=== PATIENT | male | born 1985 | race Caucasian/White ===

== ENCOUNTER 2016-07-31 21:33 | Emergency (ER) | payer OTHER ==
[~2016-07-31] VITALS: Ht 172.7 cm; Wt 73.5 kg
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
[2016-07-31] MEDS ORDERED: ONDANSETRON 2 MG/ML (Z0FRAN) 2 ML VIAL IV ONE (22:05)
[2016-07-31] MEDS ORDERED: MAGNESIUM SULFATE 1GM VIAL 2 GM, THIAMINE INJ 100 MG, MULTIVITAMIN INJ 10 ML in D5LR 1,... IV SCH (22:05)
[2016-07-31] MEDS ORDERED: LORazepam 2 MG/ML (ATIVAN) 1 ML VIAL IV ONE (22:05)
[2016-07-31] MEDS ORDERED: FAMOTIDINE IV 20 MG in SODIUM CHLORIDE VIAL (PF) 10 ML IV ONE (22:05)
[2016-07-31] MEDS ORDERED: PANTOPRAZOLE IV 40 MG in SODIUM CHLORIDE FLUSH 10 ML IV ONE (22:05)
[2016-07-31] MEDS ORDERED: MAGNESIUM SULFATE 1 GM/2 ML VIAL ONE (22:11)
[2016-07-31] MEDS ORDERED: MULTIVITAMINS (MVI) 2 5 ML VIALS IV ONE (22:11)
[2016-07-31] MEDS ORDERED: THIAMINE 100 MG/ML (VITAMIN B1) 2 ML VIAL ONE (22:11)
[2016-07-31 22:16] LABS: MEAN CORPUSCULAR HGB CONC 35.2 g/dL (31.0-37.0); MEAN PLATELET VOLUME 11.1 FL (6.0-9.5); PLATELET COUNT 111 10^3uL (150-450); WHITE BLOOD COUNT 6.53 10^3uL (4.0-11.0)
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
[2016-07-31 22:20] LABS: MEAN CORPUSCULAR VOLUME 102 FL (80-100)
--- NOTE | 2016-07-31 22:20 | NUR ---
WILLIS FORDE ARRIVED, PT IS NOW ASLEEP AFTER GETTING THE ATIVAN.
[2016-07-31 22:21] LABS: BILIRUBIN,URINE Negative (Negative); CLARITY,URINE Clear; COLOR,URINE Yellow; GLUCOSE, URINE (UA) Negative (Negative); LEUKOCYTE ESTERASE ,URINE Negative (Negative); UROBILINOGEN,URINE 0.2 mg/dL (0.2-1.0)
[2016-07-31 22:24] LABS: ALBUMIN 4.3 g/dL (3.4-5.0); ALKALINE PHOSPHATASE 238 U/L (38-126); ANION GAP 19.6 MEQ/L (3-15); BUN/CREATININE RATIO 10 (10-20); CALCULATED IONIZED CALCIUM 3.7 mg/dL (3.8-4.6); CREATINE KINASE 61 U/L (55-170); LIPASE* 353 U/L (23-300); TOTAL PROTEIN 8.6 g/dL (6.4-8.5)
[2016-07-31 22:24] LABS: URINE CENTRIFUGED VOLUME 12 mL
[2016-07-31 22:25] LABS: RBC,URINE 0-2 /HPF
[2016-07-31 22:29] LABS: AMPHETAMINE SCREEN, URINE Negative (Negative); CANNABINOID SCREEN, URINE Negative (Negative); METHAMPHETAMINE SCREEN URINE S NEGATIVE (NEGATIVE); OPIATE SCREEN URINE Negative (Negative); PROPOXYPHENE STAT NEGATIVE (NEGATIVE)
--- NOTE | 2016-07-31 22:30 | NUR ---
WILLIS FORDE LEFT SINCE PT NOW ASLEEP. WILL RETURN IF WE NEED HIM
--- NOTE | 2016-07-31 22:45 | NUR ---
LAB CALLED [facility] [id number] SINGH
--- NOTE | 2016-07-31 23:07 | NUR ---
PATIENT CONTINUES TO SLEEP AT THIS TIME
--- NOTE | 2016-07-31 23:31 | NUR ---
PT CONTINUES TO SLEEP
--- NOTE | 2016-07-31 23:39 | NUR ---
PT SLEEPING ON BACK IS MOUTH BREATHER AND SNORING SOME RN NOT ABLE TO GET PT TO WAKE UP AT THIS TIME. O2 SATS DIPPING DOWN TO 85% WITH GOOD WAVE FORM SO O2 APPLIED AND SATS BACK UP TO 99%. PT COLOR IS PINK
[2016-08-01 01:20] LABS: BAND NEUTROPHILS % 0 % (0-6); SEGMENTED NEUTROPHILS % 40 % (51-67)
[2016-08-01 01:21] LABS: EOSINOPHILS % 1 % (0-4); LYMPHOCYTES # 2.8 #; MONOCYTES # 0.6 #; MONOCYTES % 10 % (3-11); RBC MORPH NORMAL (NORMAL); TOTAL CELLS COUNTED 100
--- NOTE | 2016-08-01 01:53 | NUR ---
PT SLEEPING DID TURN OVER IN BED.
--- NOTE | 2016-08-01 02:51 | NUR ---
PATIENT CONTINUES TO SLEEP, DR SINGH AWARE.
--- NOTE | 2016-08-01 03:08 | NUR ---
pt woke up and called nurse for urinal. pt did not want to get up. voided 600 cc and fell back to sleep
--- NOTE | 2016-08-01 05:24 | NUR ---
CONTINUES TO SLEEP
[2016-08-01] MEDS ORDERED: ONDANSETRON 2 MG/ML (Z0FRAN) 2 ML VIAL IV ONE (05:35)
--- NOTE | 2016-08-01 05:51 | NUR ---
PT WOKE UP IN GOOD MOOD, MEAL TRAY GIVEN. PT SAYS HE IS READY TO TAKE A "WALK" RN ASKED IF HE MEANT TO BE DISCHARGED AND HE SAID YES. NOTIFIED DR SINGH
[2016-08-01 05:54] VITALS: BP 110/75
--- NOTE | 2016-08-01 06:00 | NUR ---
warehouse distribution associate APPROVES A VOUCHER FOR [employer] AND [employer] CALLED. ALSO PT WAS OFFERED A LIST OF DETOX CLINICS BUT DECLINES SAYS SOON I GET OUT I'M BACK LOOKING FOR LIQUOR, I JUST NEED TO DRINK BEER AND STAY OFF THE LIQUOR.
== END 2016-08-01 06:01 | disposition home or self-care (01) ==
LOC: ED 21:35
DX: F10.129 Alcohol abuse with intoxication, unspecified (principal); Y90.8 Blood alcohol level of 240 mg/100 ml or more; R07.9 Chest pain, unspecified; R45.1 Restlessness and agitation
CPT/HCPCS: 36415; 71010; 80053; 80307; 80320; 81003; 81015; 82550; 82553; 83690; 84484; 85025; 93005; 96361; 96365; 96368; 96375; 96376; 99285; C9113; J2060; J2405; J3411; J3475; J3490; J7030; J7050; 93010; 99284

== ENCOUNTER → 2016-07-31 | Outpatient (CLI) | payer OTHER | LOC: EMS 21:32 | PROVIDERS: ATTEND Emergency Medicine | DX: R07.89 Other chest pain (principal) ==